=== PATIENT | female | born 1950 | race Caucasian/White ===

== ENCOUNTER 2024-06-27 06:36 | Day surgery (SDC) | payer BC, MEDICARE ==
--- NOTE | 2024-06-25 11:42 | HP ---
HISTORY AND PHYSICAL ANTICIPATED DATE OF PROCEDURE: 06/27/2024 HISTORY OF PRESENT ILLNESS: Patient is a 74-year-old female who presents for screening colonoscopy. Last colonoscopy was 10 years ago. Patient reports a history of having an anal tear repair at [employer] years ago. It hurts at times when she passes stool. There is no blood. She is straining a little bit. She is on some beta fiber. PAST MEDICAL HISTORY: Glaucoma, arthritis. HOME MEDICATIONS: Rhopressa eye drop, MiraLAX, latanoprost, dorzolamide eye drop. ALLERGIES: Sulfa. PAST SURGICAL HISTORY: Bilateral tubal ligation. SOCIAL HISTORY: Negative. FAMILY HISTORY: None. REVIEW OF SYSTEMS: CONSTITUTIONAL: Denies fever or chills. CHEST: Denies shortness of breath. CARDIOVASCULAR: Denies chest pain. ABDOMEN: Denies abdominal pain. PHYSICAL EXAMINATION: GENERAL: No acute distress. CARDIOVASCULAR: Regular rate and rhythm. RESPIRATORY: Nonlabored. No shortness of breath. ABDOMEN: Soft. ASSESSMENT: Screening. PLAN: Colonoscopy with Dr. Garrett Corona. This report was dictated for Dr. Corona by Kellen Gaffney NP.
[2024-06-27] MEDS ORDERED: Lactated Ringers 1,000 ML IV ONE (06:55)
[2024-06-27] MEDS: Lactated Ringers 1,000 ML IV SCH (06:58)
[2024-06-27 07:10] VITALS: BP 193/74; PULSE 78; RESP 18; TEMP 98.8; O2SAT 100
== END 2024-06-27 07:22 | disposition home or self-care (01) ==
LOC: SDC 06:36
PROVIDERS: ATTEND Surgery
DX: Z53.8 Procedure and treatment not carried out for other reasons (principal)

== ENCOUNTER 2024-07-01 08:17 | Emergency (ER) | payer MEDICARE ==
--- NOTE | 2024-07-01 08:21 | ERPHSYRPT ---
- History of Present Illness Time Seen by Provider: 07/01/24 08:21 Source: patient, family Exam Limitations: no limitations Physician History: This is a thin 74-year-old white female patient of nurse steffen Lizama who arrives by private vehicle accompanied by her spouse with the concern of hypertension. Patient has no history of hypertension. However, last week, on , she was to undergo a colonoscopy but was found to have a systolic blood pressure in the 190s. The colonoscopy was canceled. She attempted to get into see her nurse practitioner Dl but was unable to secure an appointment. She is here today for evaluation and management of hypertension. Patient states she has had no blurred vision. She occasionally has headaches but this has been chronic for her. She denies chest pain. She denies shortness of breath. Patient has a history of glaucoma, type 2 diabetes, degenerative disc disease and osteoarthritis. Timing/Duration: day(s) (4) Severity: moderate Associated Symptoms: headaches (Chronic intermittent), No abdominal pain, No shortness of breath, No chest pain Allergies/Adverse Reactions: Sulfa (Sulfonamide Antibiotics) Allergy (Verified 07/01/24 08:24) Home Medications: Dorzolamide HCl/Timolol Maleat [Dorzolamide-Timolol Eye Drops] 1 - 2 drop TD DAILY 06/17/24 [History] Latanoprost 1 - 2 drop TD DAILY 06/17/24 [History] Netarsudil Mesylate [Rhopressa] 1 - 2 drop TD UD 06/17/24 [History] Travel Risk - International Travel Have you traveled outside of the country in past 3 weeks: No - Emerging Infectious Disease Are you exhibiting symptoms associated with any current EIDs: No - Review of Systems Constitutional: No Symptoms Eyes: No Symptoms Ears, Nose, & Throat: No Symptoms Respiratory: No Symptoms Cardiac: No Symptoms Abdominal/Gastrointestinal: No Symptoms Genitourinary Symptoms: No Symptoms Musculoskeletal: No Symptoms Skin: No Symptoms Neurological: Headache (Chronic intermittent. Not at this time) Psychological: No Symptoms Endocrine: No Symptoms Hematologic/Lymphatic: No Symptoms Immunological/Allergic: No Symptoms All Other Systems: Reviewed and Negative - Past Medical History Pertinent Past Medical History: Yes Neurological History: No Pertinent History ENT History: Glaucoma Cardiac History: No Pertinent History Respiratory History: No Pertinent History Endocrine Medical History: Diabetes Type II Musculoskeletal History: Degenerative Disk Disease, Osteoarthritis GI Medical History: No Pertinent History History: No Pertinent History Psycho-Social History: No Pertinent History Female Reproductive Disorders: No Pertinent History Other Medical History: TYPE II DM --only checks blood sugar "once in awhile" - Past Surgical History Past Surgical History: Yes Neuro Surgical History: No Pertinent History Cardiac: No Pertinent History Respiratory: No Pertinent History Gastrointestinal: Rectal Surgery Genitourinary: No Pertinent History Musculoskeletal: No Pertinent History Female Surgical History: Tubal Ligation - Social History Smoking Status: Never smoker - Nursing Vital Signs Nursing Vital Signs: Initial Vital Signs Temperature 96.8 F 07/01/24 08:25 Pulse Rate 55 L 07/01/24 08:25 Respiratory Rate 18 07/01/24 08:25 Blood Pressure 231/75 07/01/24 08:25 O2 Sat by Pulse Oximetry 99 07/01/24 08:25 Pain Scale Pain Intensity 0 - Physical Exam General Appearance: no apparent distress, alert, anxiety, thin Eye Exam: PERRL/EOMI, eyes nml inspection Ears, Nose, Throat Exam: normal ENT inspection, moist mucous membranes Neck Exam: normal inspection, non-tender, supple, full range of motion Respiratory Exam: normal breath sounds, lungs clear, airway intact, No chest tenderness, No respiratory distress Cardiovascular Exam: regular rate/rhythm, normal heart sounds, normal peripheral pulses Gastrointestinal/Abdomen Exam: soft, normal bowel sounds, No tenderness Pelvic Exam: not done Rectal Exam: not done Back Exam: normal inspection, normal range of motion, No CVA tenderness, No vertebral tenderness Extremity Exam: normal inspection, normal range of motion, pelvis stable Neurologic Exam: alert, oriented x 3, cooperative, 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 QTc is 445) Ordered Tests: Active Orders 24 hr Category Date Time Status Research Laboratory Specialist STAT Care 07/01/24 08:46 Active EKG-ER Only STAT Care 07/01/24 08:46 Active IV Insertion STAT Care 07/01/24 08:46 Active Pulse Oximetry (ED) STAT Care 07/01/24 08:46 Active HEAD WITHOUT CONTRAST [CT] Stat Exams 07/01/24 08:47 Completed CBC W DIFF Stat Lab 07/01/24 09:12 Completed CMP Stat Lab 07/01/24 09:12 Completed MAGNESIUM Stat Lab 07/01/24 09:12 Completed Medication Summary Discontinued Medications Generic Name Dose Route Start Last Admin Trade Name Latonia PRN Reason Stop Dose Admin Hydralazine HCl 7.5 mg 07/01/24 08:47 07/01/24 08:55 Hydralazine Hcl 20 Mg/Ml Vial IV 07/01/24 08:48 7.5 mg STAT ONE Administration Hydralazine HCl Confirm 07/01/24 08:53 Hydralazine Hcl 20 Mg/Ml Vial Administered 07/01/24 08:54 Dose 20 mg .ROUTE .STK-MED ONE Hydralazine HCl 5 mg 07/01/24 09:39 07/01/24 09:49 Hydralazine Hcl 20 Mg/Ml Vial IV 07/01/24 09:40 5 mg STAT ONE Administration Hydralazine HCl Confirm 07/01/24 09:48 Hydralazine Hcl 20 Mg/Ml Vial Administered 07/01/24 09:49 Dose 20 mg .ROUTE .STK-MED ONE Lab/Rad Data: Laboratory Result Diagrams 07/01/24 09:12 07/01/24 09:12 Laboratory Results 07/01/24 07/01/24 07/01/24 Range/Units 10:49 09:12 09:12 WBC 6.6 (3.98-10.04) x10^3/uL RBC 5.06 (3.93-5.22) x10^6/uL Hgb 16.1 H (11.2-15.7) g/dL Hct 47.9 H (34.1-44.9) % MCV 94.7 (79.4-94.8) fL MCH 31.8 (25.6-32.2) pg MCHC 33.6 (32.2-35.5) g/dL RDW 12.2 (11.7-14.4) % Plt Count 158 L (182-369) x10^3/uL MPV 10.8 (9.4-12.3) fL Gran % 69.9 (34.0-71.1) % Immature Gran % (Auto) 0.5 H (0.001-0.429) % Nucleat RBC Rel Count 0.0 (0.00-0.2) % Eos # (Auto) 0.18 (0.04-0.36) x10^3/uL Immature Gran # (Auto) 0.03 (0.001-0.031) x10^3u/L Absolute Lymphs (auto) 1.31 (1.18-3.74) x10^3/uL Absolute Monos (auto) 0.40 (0.24-0.86) x10^3/uL Absolute Nucleated RBC 0.00 (0.00-0.012) x10^3u/L Lymphocytes % 19.9 (19.3-51.7) % Monocytes % 6.1 (4.7-12.5) % Eosinophils % 2.7 (0.7-5.8) % Basophils % 0.9 (0.1-1.2) % Absolute Granulocytes 4.61 (1.56-6.13) x10^3/uL Basophils # 0.06 (0.01-0.08) x10^3/uL Sodium 140 (135-145) mmol/L Potassium 4.6 (3.5-5.1) mmol/L Chloride 103 (98-107) mmol/L Carbon Dioxide 24 (22-30) mmol/L Anion Gap 16.9 H (5-15) MEQ/L BUN 14 (7-17) mg/dL Creatinine 0.57 (0.52-1.04) mg/dL Estimated GFR 96.5 ML/MIN Glucose 233 H (74-106) mg/dL Calcium 9.7 (8.4-10.2) mg/dL Magnesium 1.7 (1.6-2.3) mg/dL Total Bilirubin 1.00 (0.2-1.3) mg/dL AST 43 H (14-36) U/L ALT 38 H (0-35) U/L Alkaline Phosphatase 55 (38-126) U/L Serum Total Protein 7.7 (6.3-8.2) g/dL Albumin 4.4 (3.5-5.0) g/dL Urine Color YELLOW (YELLOW) Urine Appearance CLEAR (CLEAR) Urine pH 7.0 (5-6) Ur Specific Gilman 1.015 (1.005-1.025) POC Urine Protein Conf NEGATIVE (Negative) Urine Ketones NEGATIVE (NEGATIVE) Urine Nitrite NEGATIVE (NEGATIVE) Urine Bilirubin NEGATIVE (NEGATIVE) Urine Urobilinogen 0.2 (0-1) mg/dL Urine Leukocytes NEGATIVE (NEGATIVE) Urine RBC NEGATIVE (0-5) Malik/ul Urine Microscopic RBC NONE SEEN (0-5) /HPF Urine Microscopic WBC NONE SEEN (0-5) /HPF Ur Epithelial Cells None Seen (None Seen) /HPF Urine Bacteria None Seen (None Seen) /HPF Urine Culture Reflexed NO (NO) Urine Glucose 250 A (NEGATIVE) mg/dL - Progress Progress: improved, re-examined Progress Note: 07/01/24 09:17 My medical decision making and the assignment of moderate complexity of this patient's medical issue today is based on review of the patient's past medical history, review the patient's medication list, review the patient drug allergy list, history present illness and physical findings on examination. The workup in this patient includes placement of intravenous line, infusion of hydralazine intravenously, CBC, CMP, magnesium, twelve-lead EKG, troponin level, urinalysis and CT scan of head without contrast. Differential diagnosis includes but is not limited to hypertension, electrolyte abnormalities, acute intracranial abnormality, arrhythmias, myocardial infarction, urinary tract infection, dehydration 07/01/24 11:15 I interpreted the patient's laboratory data results. Based on the laboratory data results, the patient has no acute, emergent medical issue. 07/01/24 11:26 CT scan of the head without contrast was interpreted by the radiologist and I reviewed the impression. The impression states normal CT scan of the head without contrast. Counseled pt/family regarding: lab results, diagnosis, need for follow-up, rad results Medical Desision Making - Diagnostic Testing Diagnostic test were ordered, analyzed, and reviewed by me: Yes Radiological Interpretation: Reviewed by me, Teleradiologist Report - Risk of complications Low Risk: Low risk of morbidity from additional dx testing or treatment - Departure Departure Disposition: Home Clinical Impression: Hypertension Condition: Stable Critical Care Time: Yes Critical Care Time(excluding separately billable procedures): Critical 30-74 mins (45) Referrals: MARTÍN LIZAMA NP [Primary Care Provider] - Follow up/PCP as directed Additional Instructions: Follow-up with your nurse practitioner at the scheduled appointment that we obtained for you. You are to see nurse steffen Lizama on 07/03/2024, at 8:30 AM. Continue your medications as prescribed. Keep a morning noon and night daily log and present the information to nurse steffen Lizama at your appointment date and time.
[2024-07-01 08:35] VITALS: TEMP 96.8
[2024-07-01] MEDS ORDERED: APRESOLINE 20 MG/ML INJ ONE ×2 (08:53→09:48)
[2024-07-01] MEDS: APRESOLINE 20 MG/ML INJ IV ONE ×2 (08:55→09:49)
[2024-07-01 09:21] LABS: Absolute Neutrophil Ct (ANC) 4.61 x10^3/uL (1.56-6.13); BASOPHIL % 0.9 % (0.1-1.2); Basophil (Absolute #) 0.06 x10^3/uL (0.01-0.08); Eosinophil % 2.7 % (0.7-5.8); Eosinophil (Absolute #) 0.18 x10^3/uL (0.04-0.36); Hematocrit 47.9 % (34.1-44.9); Hemoglobin 16.1 g/dL (11.2-15.7); IMMATURE GRAN # 0.03 x10^3u/L (0.001-0.031); IMMATURE GRAN % 0.5 % (0.001-0.429); Lymphocyte (Absolute #) 1.31 x10^3/uL (1.18-3.74); Lymphocytes % 19.9 % (19.3-51.7); Mean Cell Volume 94.7 fL (79.4-94.8); Mean Corpuscular Hemoglobin 31.8 pg (25.6-32.2); Mean Corpuscular Hgb Concent. 33.6 g/dL (32.2-35.5); Mean Platelet Volume 10.8 fL (9.4-12.3); Monocytes % 6.1 % (4.7-12.5); Neutrophil % 69.9 % (34.0-71.1); Platelet Count 158 x10^3/uL (182-369); Red Blood Count 5.06 x10^6/uL (3.93-5.22); Red Cell Distribution Width 12.2 % (11.7-14.4); White Blood Count 6.6 x10^3/uL (3.98-10.04)
[2024-07-01 09:31] LABS: ALBUMIN 4.4 g/dL (3.5-5.0); ANION GAP 16.9 MEQ/L (5-15); Calcium 9.7 mg/dL (8.4-10.2); Creatinine 1 0.57 mg/dL (0.52-1.04); EST GLOMERULAR FILTRATION RATE 96.5 ML/MIN; MAGNESIUM 1.7 mg/dL (1.6-2.3); Total Protein 7.7 g/dL (6.3-8.2)
[2024-07-01 09:32] LABS: Potassium 4.6 mmol/L (3.5-5.1)
[2024-07-01 11:00] LABS: Appearance CLEAR (CLEAR); Bilirubin NEGATIVE (NEGATIVE); Glucose 250 mg/dL (NEGATIVE); Ketones NEGATIVE (NEGATIVE); Nitrite NEGATIVE (NEGATIVE); Protein,Urine Dip NEGATIVE (Negative); RBC NEGATIVE Ery/ul (0-5); Specific Gravity 1.015 (1.005-1.025); Urobilinogen 0.2 mg/dL (0-1)
[2024-07-01 11:12] LABS: Bacteria None Seen /HPF (None Seen); Epithelial Cells None Seen /HPF (None Seen); RBC NONE SEEN /HPF (0-5); WBC NONE SEEN /HPF (0-5)
--- NOTE | 2024-07-01 11:25 | XRAY ---
Indication: Headache. Hypertension. Multiple contiguous axial images obtained through the head without contrast. Comparison: None Normal appearing brain parenchyma, ventricles, and bony calvarium for patient's age. Impression: Normal CT head without contrast exam.
[2024-07-01 12:08] VITALS: BP 146/64; PULSE 72; RESP 15; O2SAT 98
== END 2024-07-01 12:25 | disposition home or self-care (01) ==
LOC: ED 08:17
DX: I10 Essential (primary) hypertension (principal); E11.9 Type 2 diabetes mellitus without complications; Z79.899 Other long term (current) drug therapy
CPT/HCPCS: 36415; 70450; 80053; 81015; 83735; 85025; 93005; 93041; 94760; 96374; 96376; 99284; 99291; J0360